=== PATIENT | female | born 1955 | race Two or more races ===

== ENCOUNTER → 2024-11-13 | Outpatient (CLI) | payer OTHER, MEDICAID, SELFPAY ==
--- NOTE | 2024-11-13 | XR_ITS ---
EXAMINATION: Cervical spine, 5 views Technique: Cervical spine AP, AP odontoid, lateral, bilateral obliques, 5 views Exam date and time: November 13, 2024 1207 hours INDICATIONS: Neck pain years. FINDINGS: Adequate alignment cervical vertebral bodies Mild bilateral neural foraminal stenosis C3-C4 Early degenerative disc disease C5-C6, C6-C7 with mild bilateral neural foraminal stenosis Intact odontoid No cervical fracture IMPRESSION: Early degenerative disc disease C5-C6, C6-C7
== END | disposition home or self-care (01) ==
PROVIDERS: PCP Internal Medicine; Referring Provider Internal Medicine; Visit Provider Internal Medicine
DX: M50.322 Other cervical disc degeneration at C5-C6 level (principal)
CPT/HCPCS: 72050

== ENCOUNTER → 2025-02-08 | Outpatient (CLI) | payer MEDICARE, MEDICAID, SELFPAY ==
--- NOTE | 2025-02-08 13:10 | XR_ITS ---
Examination: Shoulder bilateral, 6 views Technique: Shoulder AP internal rotation, AP external rotation, Y view each shoulder total 6 views Exam date and time :February 08, 2025, 1345 hrs. Indications: Shoulder pain beginning one week ago. Findings: Moderate osteopenia Bilateral mild to moderate narrowing glenohumeral joints Bilateral mild shoulder calcific tendinitis Bilateral moderate osteoarthritis acromioclavicular joints No fracture or dislocation Impression: Mild bilateral shoulder calcific tendinitis Mild to moderate bilateral narrowing glenohumeral joints
--- NOTE | 2025-02-08 13:10 | XR_ITS ---
Examination: Cervical spine 4 views Technique: AP, lateral, swimmer's lateral, AP coned odontoid 4 views Exam date and time: January,, 2024, 1341 hrs. Indications: Neck pain beginning one week ago radiating down the arms. Findings: Moderate degenerative disc disease C5-C6, C6-C7 No cervical fracture. Intact odontoid. Cervical thoracic levoscoliosis 10 degrees Impression: Moderate degenerative disc disease C5-C6, C6-C7 As clinically warranted, MRI cervical spine without contrast follow-up would best assess for soft tissue disc protrusion producing radicular arm pain
== END | disposition home or self-care (01) ==
PROVIDERS: PCP Nurse Practitioner Primary Care; Referring Provider Nurse Practitioner Primary Care; Visit Provider Nurse Practitioner Primary Care
DX: M50.322 Other cervical disc degeneration at C5-C6 level (principal); M75.32 Calcific tendinitis of left shoulder; M75.31 Calcific tendinitis of right shoulder; M25.812 Other specified joint disorders, left shoulder; M25.811 Other specified joint disorders, right shoulder
CPT/HCPCS: 72040; 73030

== ENCOUNTER → 2025-06-20 | Outpatient (CLI) | payer MEDICARE, MEDICAID, SELFPAY ==
--- NOTE | 2025-06-20 10:54 | XR_ITS ---
Examination: Thoracic spine 3 views TECHNIQUE: AP, lateral, coned lateral upper dorsal spine 3 views Date and time: June 20, 2025, 1138 hours INDICATIONS: Patient fell 3 days ago with injury to the back, back pain. FINDINGS: Satisfactory alignment thoracic vertebral bodies. No thoracic fracture Mild diffuse thoracic disc narrowing IMPRESSION: No acute thoracic fracture
--- NOTE | 2025-06-20 10:54 | XR_ITS ---
Examination: Cervical spine 4 views TECHNIQUE: AP, lateral, swimmer's lateral, AP odontoid cervical spine 4 views Date and time: June 20, 2025 1117 hours INDICATIONS: Patient fell 3 days ago with injury to the neck, neck pain FINDINGS: Adequate alignment cervical vertebral bodies No cervical fracture Mild disc narrowing C6-C7 Intact odontoid IMPRESSION: No cervical fracture
== END | disposition home or self-care (01) ==
LOC: CDIM 10:22
PROVIDERS: PCP Nurse Practitioner Primary Care; Referring Provider Nurse Practitioner Primary Care; Visit Provider Nurse Practitioner Primary Care
DX: S19.9XXA Unspecified injury of neck, initial encounter (principal); W19.XXXA Unspecified fall, initial encounter
CPT/HCPCS: 72040; 72070